=== PATIENT | female | born 1975 | race Hispanic/Latino ===

== ENCOUNTER 2018-08-24 01:28 | Emergency (ER) | payer MEDICAID ==
[2018-08-24 02:16] VITALS: RESP 16; O2SAT 100
[2018-08-24] MEDS ORDERED: DiphenhydrAMINE 50 mg/ml Inj IVP STA (03:20)
--- NOTE | 2018-08-24 03:26 | ED PDOC ---
HPI: Eye Injury/Pain Time Seen by Provider: 08/24/18 02:22 Chief Complaint (Nursing): Eye Problem Chief Complaint (Provider): Eye Pain/Headache History Per: Patient History/Exam Limitations: no limitations Onset/Duration Of Symptoms: Days (three) Current Symptoms Are (Timing): Still Present Injury To Eye?: No Severity: Mild Wears Contact Lens?: No Associated Symptoms: Pain (Pt present) Additional Complaint(s): Pt presents to the ED complaining of several days of right eye pain and pressure; Pt denies nausea vomiting and diarhhea but does have a hx including migraine headaches; Pt indicates that her lens prescription is updated annually and was lastupdated in February 2018. She was seen by an opthmologist two days ago to check her pressures (Dr Juaquin King) and he ordered an MRI on her brain tht is scheduled on (four days from now). The eye pressures received from the optho office were OD-11 and OS-15 Past Medical History Reviewed: Historical Data, Nursing Documentation, Vital Signs Vital Signs: Last Vital Signs Temp 97 F L 08/24/18 02:05 Pulse 84 08/24/18 02:05 Resp 16 08/24/18 02:05 BP 105/71 08/24/18 02:05 Pulse Ox 100 08/24/18 02:05 - Family History Family History: States: Unknown Family Hx - Allergies Allergies/Adverse Reactions: Allergies Allergy/AdvReac Type Severity Reaction Status Date / Time No Known Allergies Allergy Verified 08/24/18 02:05 Review of Systems Eyes: Positive for: Pain. Negative for: Vision Change, Eyelid Inflammation, Redness Physical Exam - Reviewed Nursing Documentation Reviewed: Yes Vital Signs Reviewed: Yes - Physical Exam Eye Exam: Positive for: Normal appearance, EOMI, PERRL, Periorbital tenderness, Other (JENIFER: OD-8 OS-6). Negative for: Nystagmus, Periorbital swelling, Conjunctival injection ENT: Positive for: Normal ENT Inspection Neck: Positive for: Normal, Painless ROM, Supple. Negative for: Decreased ROM Cardiovascular/Chest: Positive for: Regular Rate, Rhythm Respiratory: Positive for: Normal Breath Sounds - Laboratory Results Result Diagrams: 08/24/18 04:08 08/24/18 04:08 - ECG O2 Sat by Pulse Oximetry: 100 Medical Decision Making Medical Decision Making: CT HEAD RESULTS TECHNIQUE: Axial and reformatted sagittal and coronal images of the brain obtained without IV contrast administration. Normal size of the ventricles and extra-axial spaces for the patient's age. Normal white matter tracts of the supratentorial brain. Normal basal ganglia and thalami. Normal brainstem. Normal cerebellum. There is no demonstrated extra-axial, intraparenchymal, or intraventricular hemorrhage. There are no findings of an acute ischemic infarction. Normal calvarium. There is no demonstrated fracture. Normal soft tissue structures. Normal visualized paranasal sinuses. IMPRESSION: Normal unenhanced CT scan of the brain. Electronically signed on Aug 24, 2018 4:08:03 AM EST by: Cely Nick M.D., Certified by ABR, MSK, Neuroradiology Pt will be discharged; pt is stable Pt advised to follow up with her opthomologist and as well to maintain the appt for her MRI in three days Disposition - Clinical Impression Clinical Impression: Migraine - Patient ED Disposition Is Patient to be Admitted: No - Disposition Disposition: Routine/Home Disposition Time: 04:53 Condition: STABLE Additional Instructions: follow up with Dr Juaquin King Have MRI as scheduled on 08/27 Instructions: Headache, Adult (DC), Headache, Adult, Migraine Headache (DC) Forms: [employer] (Yi)
[2018-08-24 04:29] LABS: BASO % 0.6 % (0.0-2.0); EOS # 0.1 K/uL (0.0-0.7); EOS % 1.9 % (0.0-4.0); HEMOGLOBIN 12.2 g/dL (12.0-16.0); LYMPH # 2.3 K/uL (1.0-4.3); LYMPH % 36.7 % (20.0-40.0); MEAN CORPUSCULAR HEMOGLOBIN 31.3 pg (27.0-31.0); MEAN PLATELET VOLUME 7.2 fl (7.2-11.7); MONO # 0.6 K/uL (0.0-0.8); NEUT # 3.2 K/uL (1.8-7.0); NEUT % 51.8 % (50.0-75.0); NRBC % 0.1 % (0.0-0.0); RBC 3.89 Mil/uL (3.80-5.20); RED CELL DISTRIBUTION WIDTH 13.4 % (11.5-14.5); WHITE BLOOD COUNT 6.2 K/uL (4.8-10.8)
[2018-08-24 04:31] LABS: URINE BILIRUBIN NEGATIVE (NEGATIVE); URINE BLOOD NEGATIVE (NEGATIVE); URINE CLARITY CLEAR (Clear); URINE COLOR STRAW (YELLOW); URINE GLUCOSE (UA) NEG (NEGATIVE); URINE LEUKOCYTE ESTERASE NEG Leu/uL (Negative); URINE PROTEIN NEGATIVE (NEGATIVE); URINE UROBILINOGEN 0.2-1.0 mg/dL (0.2-1.0)
[2018-08-24 04:38] LABS: ALB/GLOB RATIO 1.4 (1.0-2.1); ALBUMIN 3.9 g/dL (3.5-5.0); ALT/SGPT 37 U/L (9-52); AST/SGOT 26 U/L (14-36); BLOOD UREA NITROGEN 14 mg/dl (7-17); GFR NON-AFRICAN AMERICAN > 60
[2018-08-24 05:35] VITALS: BP 100/67; PULSE 74; TEMP 97.8
--- NOTE | 2018-08-24 08:47 | CT ---
Date of service: 08/24/2018 PROCEDURE: CT HEAD WITHOUT CONTRAST. HISTORY: eye pain, right side COMPARISON: None available. TECHNIQUE: Axial computed tomography images were obtained through the head/brain without intravenous contrast. Radiation dose: Total exam DLP = 727.71 mGy-cm. This CT exam was performed using one or more of the following dose reduction techniques: Automated exposure control, adjustment of the mA and/or kV according to patient size, and/or use of iterative reconstruction technique. FINDINGS: HEMORRHAGE: No intracranial hemorrhage. BRAIN: No mass effect or edema. No atrophy or chronic microvascular ischemic changes. VENTRICLES: Unremarkable. No hydrocephalus. CALVARIUM: Unremarkable. PARANASAL SINUSES: Unremarkable as visualized. No significant inflammatory changes. MASTOID AIR CELLS: Unremarkable as visualized. No inflammatory changes. OTHER FINDINGS: None. IMPRESSION: Normal CT of the Head. No intracranial mass, hemorrhage or evidence of acute infarct. The preliminary findings for this examination were reported by [facility] at 4:08 a.m. on 08/24/2018. There is concurrence of this report with the preliminary findings.
== END 2018-08-24 05:10 | disposition home or self-care (01) ==
LOC: H.ER 01:28
DX: G43.909 Migraine, unspecified, not intractable, without status migrainosus (principal)